=== PATIENT | female | born 1990 | race Caucasian/White ===

== ENCOUNTER → 2021-08-07 08:15 | Outpatient (BNVA) | payer BC, SELFPAY | PROVIDERS: Visit Provider Family Medicine | DX: Z20.822 Contact with and (suspected) exposure to COVID-19 (principal) | CPT/HCPCS: 87426; 87635 ==

== ENCOUNTER → 2024-09-07 12:18 | Outpatient (BNVA) | payer OTHER, SELFPAY | DX: J02.9 Acute pharyngitis, unspecified (principal); J98.8 Other specified respiratory disorders; B97.89 Other viral agents as the cause of diseases classified elsewhere | CPT/HCPCS: 87880 ==